=== PATIENT | female | born 1930 | race Caucasian/White ===

== ENCOUNTER → 2018-04-06 | Day surgery (SDC) | payer OTHER, BC ==
--- NOTE | 2018-04-06 23:17 | OP ---
DATE OF OPERATION: 04/06/2018 PREOPERATIVE DIAGNOSIS: Bilateral breast masses, right 9 o'clock, 4 cm from the nipple, and left 2-3 o'clock, 6 cm from the nipple. POSTOPERATIVE DIAGNOSIS: Bilateral breast masses, right 9 o'clock, 4 cm from the nipple, and left 2-3 o'clock, 6 cm from the nipple. PROCEDURE: Bilateral ultrasound guided core biopsy with clip placement. ATTENDING SURGEON: Giselle Boucher M.D. ESTIMATED BLOOD LOSS: Minimal. COMPLICATIONS: None. DESCRIPTION OF PROCEDURE: Patient was made aware of the risks and benefits of the procedure and consented. She was placed in a supine position. Left side was approached first. Under sterile conditions, with 1% lidocaine for local anesthesia, a small fish was made in the skin. Using a 13 gauge from a lateral approach under ultrasound guidance, multiple cores were obtained and submitted to pathology. Likewise under ultrasound guidance, the U-shaped clip was placed into the biopsy region. Well tolerated by patient. Steri-Strip and a sterile bandage were applied. The right side was then approached. Under sterile conditions, with 1% lidocaine for local anesthesia, a small fish was made in the skin. Using a 13 gauge from a lateral approach under ultrasound guidance, multiple cores were obtained and submitted to pathology. Likewise under ultrasound guidance, the U-shaped clip was placed into the biopsy region. Well tolerated by patient. Steri-Strip and a sterile bandage were applied. Will contact her with results. GISELLE BOUCHER M.D. [id number] MTDD
--- NOTE | 2018-04-07 15:43 | PATH ---
Surgical Pathology Report Patient Name: JEFERSON MIGUEL [facility]. Rec. #: [id number] /Age/Gender: 1930 (Age: 87) / F Account: [id number] Location: [facility] BREAST CENT Taken: 04/06/2018 Received: 04/06/2018 Reported: 04/07/2018 Physicians: Brea Lee M.D. Specimen(s) Received A: LEFT BREAST CORE BIOPSY 2-3 N+6 B: RIGHT BREAST CORE BIOPSY 9:00 N+4 Clinical History Palpable mass Ultrasound findings: Suspicious Final Diagnosis A. LEFT BREAST, 2-3:00, N+6, CORE BIOPSY: BREAST TISSUE SHOWING STROMAL FIBROSIS, OLD HEMORRHAGE (HEMOSIDERIN-LADEN MACROPHAGES), FOCAL FAT NECROSIS WITH HISTIOCYTIC REACTION INCLUDING MULTINUCLEATED GIANT CELLS. NEGATIVE FOR CARCINOMA. B. 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 THE INVASIVE CARCINOMA MEASURES AT LEAST 1.2 CM IN LENGTH IN THIS MATERIAL. Results of Estrogen Receptor (ER) and Progesterone Receptor (NE) studies performed on block "B1" at [facility] are as follows: ER (clone [id number] mouse monoclonal antibody by [employer]): 100% nuclear staining with strong intensity (Positive). NE (clone16 mouse monoclonal antibody by [employer]): >60% nuclear staining with strong intensity (Positive). Positive and negative controls (internal if applicable) show appropriate results. Formalin fixation and cold ischemic times are within current ASCO/CAP recommendations for ER, NE and Her2 testing. Reports for Her 2 and Ki-67 to follow. Electronically Signed Raza Anaya M.D. Addendum Reported: 04/08/2018 Addendum Diagnosis Biomarker Studies Results of Her2 (IHC) & Ki-67 studies performed on block "B1" at [place], [place] ([id number]) interpreted at [facility] are as follows: Her2 IHC (EP3 from [employer], formerly known as [id number], using [employer] Polymer Refine detection kit): 3+ (Positive) Ki-67: >40% (high proliferative index) Kiyoe Anaya, M.D. Gross Description A. Received in formalin labeled "left breast 2-3:00, 6 cmfn," is a 1.5 x 1.1 x 0.2 cm aggregate of woodard-yellow, irregular to cylindrical portions of fibroadipose tissue. The formalin is filtered and the specimen is entirely submitted in one cassette. B. Received in formalin labeled "right breast 9:00, 4 cmfn," is a 2.5 x 1.5 x 0.2 cm aggregate of multiple woodard-yellow, irregular to cylindrical portions of fibroadipose tissue. The formalin is filtered and the specimen is entirely submitted in one cassette. Time to formalin fixation: Less than one minute Total formalin fixation time: Approximately 6 hours. 04/06/2018 saudi04/06/2018
== END | disposition home or self-care (01) ==
LOC: FRADUS-SUR 12:15
PROVIDERS: ATTEND Surgery
PROC: 0HBV3ZX Excision of Bilateral Breast, Percutaneous Approach, Diagnostic (ICD-10-PCS; principal; 2018-04-06)
DX: C50.811 Malignant neoplasm of overlapping sites of right female breast (principal); D05.11 Intraductal carcinoma in situ of right breast; N63.21 Unspecified lump in the left breast, upper outer quadrant; N63.10 Unspecified lump in the right breast, unspecified quadrant; N60.32 Fibrosclerosis of left breast; N64.1 Fat necrosis of breast; N64.89 Other specified disorders of breast; Z17.0 Estrogen receptor positive status [ER+]
CPT/HCPCS: 19083; 87899; 88305-TC; 88342-TC; A4648